=== PATIENT | male | born 1990 | race Caucasian/White ===

== ENCOUNTER 2020-01-04 07:33 | Emergency (ER) | payer SELFPAY ==
--- NOTE | ~2020-01-04 | XR_ITS ---
EXAMINATION:[id number] DATE: 01/04/2020 08:59 INDICATION: Neck pain TECHNIQUE: AP, lateral, lateral swimmers and odontoid views of the cervical spine are provided. COMPARISON: None FINDINGS: There is straightening of the cervical spine which can be positional or due to muscular spa sm. There is 1 mm of anterolisthesis of C4 on C5. The odontoid is intact. No fracture is identified. Vertebral body heights and disk spaces are normal. Prevertebral soft tissues are normal. IMPRESSION: 1. Mild cervical spondylosis without acute findings. Reviewed, dictated and finalized at location A.
[2020-01-04 07:39] VITALS: BP 154/95; PULSE 76; RESP 16; TEMP 36.2; O2SAT 99
[2020-01-04] MEDS: KETOROLAC (*BKC) 60 MG/2 ML VIAL IM (08:42)
[2020-01-04] MEDS: methylPREDNISolone SOD SUCC 125 MG VIAL IM (08:42)
--- NOTE | 2020-01-04 08:47 | ED.NECK ---
HPI - Neck Pain/Injury General Chief Complaint: Neck Pain/Injury Stated Complaint: neck pain Time Seen by Provider: 01/04/20 07:59 Source: patient Mode of arrival: ambulatory Limitations: no limitations History of Present Illness HPI Narrative: THis patient is a 29 year old male who presents for evaluation of neck pain. Patient states he performed heavy lifting 1 week ago and 2 days later he woke up with neck pain. He states this pain has gradually worsened. He has pain with any movement of his head. He denies fever, chills, nausea, vomiting, chest pain, focal weakness, numbness or tingling. Related Data Allergies Allergy/AdvReac Type Severity Reaction Status Date / Time No Known Allergies Allergy Verified 01/04/20 07:42 Review of Systems Review of Systems: All systems reviewed & are unremarkable except as noted in HPI and below Constitutional: Constitutional: Denies chills and Denies fever(s) Eyes: Eyes: Denies change in vision ENT: Denies nasal congestion and Denies sore throat Cardiovascular: Cardiovascular: Denies chest pain Respiratory: Respiratory: Denies cough and Denies dyspnea Gastrointestinal: Gastrointestinal: Denies vomiting Neurologic: Reports headache(s) and Denies numbness PMFSH Past Medical History Medical History (Updated 01/04/20 @ 10:06 by Sulema Bradley MD) Patient denies medical problems Family History Family History (Updated 12/29/15 @ 23:19 by DOCTOR UNKNOWN) Father Hypertension Family history of diabetes mellitus in first degree relative Mother Hypertension Family history of diabetes mellitus in first degree relative Social History Social History Alcohol intake: never Gender identity (if verbalized by the patient): Male Exam Narrative: Exam Narrative: GENERAL: Well-appearing, well-nourished, and in no acute distress. HEAD: Normocephalic, atraumatic EYES: PERRLA and EOMI, conjunctiva clear without discharge EARS: TM's clear bilaterally without erythema or dullness NOSE: Nares clear, no rhinorrhea or epistaxis THROAT:Mucous membranes moist, Oropharynx normal without erythema, exudate, peritonsillar swelling or fluctuance RESPIRATORY: No respiratory distress, Airway patent, Respirations non-labored, Clear to auscultation without rales, rhonchi or wheeze HEART: Regular rate and rhythm. No murmur heard. Normal peripheral pulses. ABDOMEN: Soft, nontender, nondistended, normal active bowel sounds. No masses. No rebound or guarding, No organomegaly. EXTREMITIES: No edema, normal strength with full range of motion. SKIN: Warm, dry, normal color without rash NEURO: Alert and oriented x3. CN 2-12 grossly intact. No focal deficits. PSYCH: Normal mood and affect. Neck: Neck: no lymphadenopathy, no meningeal signs and trachea midline Thyroid: thyroid normal Back/Spine/Pelvis: Cervical Spine: cervical muscular tenderness, pain with cervical ROM and cervical spasm Course Reevaluation(s) Reevaluation #1: Patient has had significant improvement with his pain which is likely due to muscle spasm Date: 01/04/20 Time: 10:04 Vital Signs Vital signs: Vital Signs Temperature 97.2 F L 01/04/20 07:39 Pulse Rate 76 01/04/20 07:39 Respiratory Rate 16 01/04/20 07:39 Blood Pressure 154/95 H 01/04/20 07:39 Pulse Oximetry 99 01/04/20 07:39 Temperature 97.2 F L 01/04/20 07:39 Pulse Rate 71 01/04/20 10:30 Respiratory Rate 16 01/04/20 10:30 Blood Pressure 133/96 H 01/04/20 10:30 Pulse Oximetry 99 01/04/20 10:30 MDM - Neck Pain/Injury Differential Diagnosis Differential diagnosis: Likely cervical radiculopathy, torticollis, cervical spondylosis and strain of neck muscle Imaging Data Radiologist's impression: ITS Impressions Cervical Spine X-Ray 01/04/20 09:02 IMPRESSION: 1. Mild cervical spondylosis without acute findings. Discharge Plan Discharge Clinical Impression: Cervical paraspinal musc
[2020-01-04 10:30] VITALS: BP 133/96; PULSE 71; RESP 16; O2SAT 99
== END 2020-01-04 10:30 | disposition home or self-care (01) ==
PROVIDERS: Emergency Provider General Practice
DX: R25.2 Cramp and spasm (principal); M47.812 Spondylosis without myelopathy or radiculopathy, cervical region
CPT/HCPCS: 72040; 96372; 99284; J1885; J2930